=== PATIENT | male | born 1970 | race Caucasian/White ===

== ENCOUNTER 2021-01-05 06:57 | Day surgery (SDC) | payer OTHER, SELFPAY ==
[~2021-01-05] VITALS: Ht 165.1 cm; Wt 62.6 kg
[2021-01-05] MEDS ORDERED: diphenhydrAMINE 50 MG/ML VIAL ONE (09:38)
[2021-01-05] MEDS ORDERED: fentaNYL citrate 0.05 MG/ML VIAL ONE (09:38)
[2021-01-05] MEDS ORDERED: MIDAZOLAM 5 MG/5 ML VIAL ONE (09:38)
[2021-01-05] MEDS ORDERED: LIDOCAINE 2% 100 MG/5 ML UJET TP ONE (09:39)
[2021-01-05] MEDS ORDERED: MIDAZOLAM 2 MG/2 ML VIAL IVP ONE (10:45)
[2021-01-05] MEDS ORDERED: fentaNYL citrate 0.05 MG/ML VIAL IVP ONE (10:45)
== END 2021-01-05 10:50 | disposition home or self-care (01) ==
LOC: MOR 06:57 → MMU 06:58 → MOR 10:50
PROVIDERS: ATTEND Internal Medicine Gastroenterology
DX: Z12.11 Encounter for screening for malignant neoplasm of colon (principal); D12.4 Benign neoplasm of descending colon; Z20.822 Contact with and (suspected) exposure to COVID-19; Z79.899 Other long term (current) drug therapy
CPT/HCPCS: 45385; 88305; J2250; J3010; U0003; J1200